=== PATIENT | male | born 1950 | race Caucasian/White ===

== ENCOUNTER 2016-07-05 01:16 | Inpatient (IN) | payer OTHER, MEDICARE ==
[~2016-07-05] VITALS: Ht 170.2 cm; Wt 102.5 kg
[~2016-07-05 01:16] MED LIST: ALLOPURINOL100 M1 PO; ASPIRIN EC325 M2 PO; BUPROPION XL150 MG PO; COLACE100 M1 PO; COZAAR50 M1 PO; DILAUDID2 M1 PO; EFFEXOR XR37.5 M1 PO; HYDROCHLOROTHIA25 M1 PO; MIRALAX17 G1 PO; MOVANTIK25 M1 PO; MS CONTIN30 M1 PO; OMEPRAZOLE40 M1 PO; SYNTHROID150 MCG PO; SYNTHROID75 MCG PO
--- NOTE | 2016-07-05 15:12 | Operative Report ---
Operative/Inv Procedure Report Surgery Date: 07/05/16 Name of Procedure: Left total knee replacement Pre-Operative Diagnosis: Primary left knee DJD Post-Operative Diagnosis: Same Estimated Blood Loss: 50ml to 100ml Surgeon/Laserist: SARAY RIOS,JAVIER Razo Anesthesia: block Operative/Procedure Note Note: Description of Procedure: The patient was taken to the operating room and positively identified. After induction of spinal anesthesia and administration of appropriate pre-operative antibiotics, the patient was positioned supine on the operating room table and all bony prominences were well padded. A well-padded pneumatic tourniquet was placed on the left upper thigh. After performing a surgical timeout, the left lower extremity was prepped and draped in the usual sterile fashion. After exsanguination with Esmarch the tourniquet was inflated to 250mm of mercury. A standard medial parapatellar approach was made to the knee. This was carried down through skin and subcutaneous tissue to the level of the fascia. Meticulous hemostasis was maintained with Bovie electrocautery. The extensor mechanism and patellar retinaculum were opened sharply and the patella was everted. The infrapatellar fat was resected in order to improve exposure. Osteophytes were trimmed from the patella and femoral condyles and the patella was re-everted and tucked laterally. A medial release was performed and the cruciate ligaments were resected. The tibia was then subluxed anteriorly. Utilizing the appropriate extra-medullary guide, the proximal tibia was trimmed perpendicular to the long axis of the tibial shaft. Attention was then turned to the femur. After opening the medullary canal, the distal femoral cut was made in 6 degrees of valgus utilizing the appropriate intra-medullary guide. The extension gap was checked and found to be appropriate. The femur was then sized and the remainder of the femoral cuts were made with a size 5 4-in-1 femoral cutting guide. The flexion gap was checked and found to be symmetric and appropriate. The knee was then trialed with a size 5 femoral component, a size 5 tibial component and a size 13 mm polyethylene insert. The patella was not resurfaced due to its excellent preoperative condition. This yielded excellent range of motion, stability and patellar tracking. All trial components were removed and the knee was copiously irrigated with sterile saline. All components were cemented into place with Pollard Simplex cement. All the components were of the Siva Triathlon knee system of the above stated sizes. The knee was again irrigated after cementation. The extensor mechanism and patellar retinaculum were repaired using interrupted #1 vicryl suture. The skin was re-approximated with 2-0 vicryl and closed with justa. A sterile dressing was applied, the tourniquet was deflated, the patient was awakened and taken to the recovery room in satisfactory condition.
[2016-07-05] MEDS ORDERED: ASPIRIN EC325 M2 PO (15:42)
[2016-07-05] MEDS ORDERED: MS CONTIN15 M2 PO (15:46)
[2016-07-05] MEDS ORDERED: MIRALAX17 G1 PO (15:46)
[2016-07-05] MEDS ORDERED: COLACE100 M1 PO (15:46)
[2016-07-05] MEDS ORDERED: DILAUDID2 M1 PO (15:46)
--- NOTE | 2016-07-05 15:49 | Patient Discharge Instructions ---
Discharge Instructions General Discharge Information You were seen/treated for: Left knee pain secondary to primary unilateral osteoarthritis You had these procedures: Left total knee replacement Watch for these problems: Increasing pain, redness, warmth, swelling. Drainage of any type from incision. Inability to bear weight on left leg. Fever greater than 101.5. Do not soak the wound: Yes No bath, but you may shower: Yes Other wound care: Keep wound clean and dry Special Instructions: Incision: Dry dressing. May shower. No baths. No ointments of any kind. Ice as needed. Bowel regimen: Colace and or MiraLAX Weight-bearing as tolerated Follow-up with Dr. Chandler in 6 weeks. Call office for fevers greater than 101.5, excessive drainage or inability to bear weight on operative extremity. Visiting nurse will change dressing. Diet Continue normal diet: Yes Recommended Diet: Regular Additional DIET Information: Advance as tolerated Activity Full Activity/No Limits: No Activity Self Limited: Yes Pounds, do NOT lift more than: 10 Additional ACTIVITY Info: Weight-bear as tolerated on left leg Acute Coronary Syndrome Inclusion Criteria At DC or during hospital stay patient has or had the following: ACS DIAGNOSIS No Discharge Core Measures Meds if any: Prescribed or Continued at Discharge Meds if any: NOT Prescribed or Continued at Discharge Congestive Heart Failure Inclusion Criteria At DC or during hospital stay patient has or had the following: CHF DIAGNOSIS No Discharge Core Measures Meds if any: Prescribed or Continued at Discharge Meds if any: NOT Prescribed or Continued at Discharge Cerebrovascular accident Inclusion Criteria At DC or during hospital stay patient has or had the following: CVA/TIA Diagnosis No Discharge Core Measures Meds if any: Prescribed or Continued at Discharge Meds if any: NOT Prescribed or Continued at Discharge Venous thromboembolism Inclusion Criteria VTE Diagnosis No VTE Type NONE VTE Confirmed by (Test) NONE Discharge Core Measures - Per Current guidelines, there needs to be overlap - treatment for the first 5 days of Warfarin therapy. - If discharged on Warfarin prior to 5 days of - overlap therapy, the patient will need to be - assessed for post discharge needs including - *Post discharge parental anticoagulation - *Warfarin and/or parental anticoagulation education - *Follow up date to check INR post discharge At least 5 days overlap therapy as Inpatient No Meds if any: Prescribed or Continued at Discharge Note: Overlap Therapy is Warfarin and Anticoagulant Meds if any: NOT Prescribed or Continued at Discharge
--- NOTE | 2016-07-05 15:50 | Surgical Discharge Summary ---
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 Patient/Self What is Your Primary Language? Libyan Review of Systems: See H&P Hospital Course Course Attending Physician: JAVIER SO MD Primary Care Physician: DENIZ RIOS,[place] Hospital Course: Patient was admitted to the hospital on 07/05/2016 for an elective left total knee replacement. He tolerated the procedure well. He was transferred to a general surgical floor. His diet was advanced and tolerated. His vital signs are stable and within normal limits. He voided spontaneously. His pain was well controlled. He was evaluated and treated by physical therapy. He was deemed appropriate for discharge. Allergies: Coded Allergies: esomeprazole (From NEXIUM) (Intermediate, FLU LIKE REACTION 02/26/16) latex (Intermediate, RASH 02/26/16) Gadolinium-Containing Contrast Medi (DISCOMFORT, PAIN AT SITE OF INJ, NAUSEA ) Disposition Summary Disposition Principal Diagnosis: Left knee unilateral primary osteoarthritis Additional Diagnosis: None Discharge Disposition: home health services Discharge Instructions General Discharge Information Code Status: Full Code Patient's Diet: Regular, advance as tolerated Patient's Activity: Weight-bear as tolerated on left leg Follow-Up Instructions/Appts: Incision: Dry dressing. May shower. No baths. No ointments of any kind. Ice as needed. Bowel regimen: Colace and or MiraLAX Weight-bearing as tolerated Follow-up with Dr. So in 6 weeks. Call office for fevers greater than 101.5, excessive drainage or inability to bear weight on operative extremity. Visiting nurse will change dressing. Medications at Discharge Discharge Medications: Continue taking these medications: Allopurinol (Allopurinol) 100 MG TABLET 1 Tablet ORAL DAILY Comments: Last Taken:07/07/16 Time:0930 Hydrochlorothiazide (Hydrochlorothiazide) 25 MG TABLET 1 Tablet ORAL DAILY Comments: Last Taken:07/07/16 Time:0930 Losartan Potassium (Cozaar) 50 MG TABLET 1 Tablet ORAL TWICE DAILY Comments: Last Taken:07/07/16 Time:09 Venlafaxine HCl (Effexor XR) 37.5 MG CAP.ER.24H 1 Capsule ORAL Every other day Comments: Last Taken:07/06/16 Time:0600 Levothyroxine Sodium (Synthroid) 75 MCG TABLET 1 Tablet ORAL DAILY BEFORE BREAKFAST Qty = 90 Comments: Last Taken:07/07/16 Time:0630 Naloxegol Oxalate (Movantik) 25 MG TABLET 1 Tablet ORAL Every Morning as needed for CONSTIPATION Qty = 14 Comments: Last Taken:NOT GIVEN IN HOSPITAL Time: Omeprazole (Omeprazole) 40 MG CAPSULE.DR 1 Tablet ORAL DAILY Comments: Last Taken:07/07/16 Time:0630 Bupropion HCl (Wellbutrin Sr) 150 MG TABLET.ER 1 Tablet ORAL DAILY Comments: Last Taken:07/07/16 Time:09 Aspirin (Ecotrin*) 325 MG TABLET.DR 1 Tablet ORAL TWICE DAILY Qty = 60 Comments: Last Taken:07/07/16 Time:0930 This prescription has been renewed Start taking the following new medications: Hydromorphone HCl (Dilaudid) 2 MG TABLET 1-2 Tablet ORAL EVERY 4-6 HOURS as needed for PAIN Qty = 36 No Refills Comments: Last Taken:07/07/16 Time:0715 Docusate Sodium (Colace) 100 MG CAPSULE 1 Capsule ORAL TWICE DAILY Qty = 14 No Refills Instructions: DISCONTINUE USE IF YOU DEVELOP LOOSE STOOL OR DIARRHEA Comments: Last Taken:07/07/16 Time:0930 Polyethylene Glycol 3350 (Miralax) 17 GRAM POWD.PACK 1 Packet ORAL DAILY Qty = 7 No Refills Instructions: dissolve in water, DISCONTINUE USE IF YOU DEVELOP LOOSE STOOL OR DIARRHEA Comments: Last Taken:07/07/16 Time:0930 Morphine Sulfate (Ms Contin) 30 MG TABLET.ER 1 Tablet ORAL TWICE DAILY Qty = 12 No Refills Comments: Last Taken:NOT GIVEN IN HOSPITAL Time: Ketorolac Tromethamine (Ketorolac Tromethamine) 10 MG TABLET 1 Tablet ORAL EVERY SIX HOURS NEEDED as needed for PAIN SCALE 7-10 ( SEVERE) Qty = 20 No Refills Comments: Last Taken:3/10/17 Time:0630 ( IV GIVEN IN HOSPITAL )
--- NOTE | 2016-07-05 15:52 | Admission Core Measures ---
Admission Meds I reviewed the following Meds: Current Medications Sig/Hussain Start time Last Medication Dose Stop Time Status Admin Acetaminophen 975 MG ONCE 07/05 0000 NR (Tylenol) 07/05 235 Allopurinol 100 MG DAILY 07/06 1000 UNVr (Zyloprim) Cefazolin Sodium 2,000 MG ONCE 07/05 0000 NR (Kefzol-Ancef Inj) 07/05 235 Hydrochlorothiazide 25 MG DAILY 07/06 1000 UNVr (Hydrodiuril) Levothyroxine Sodium 0.075 MG DAILY AC 07/06 0700 UNVr (Synthroid) Losartan Potassium 50 MG BID 07/05 2200 UNVr (Cozaar) Oxycodone HCl 10 MG ONCE 07/05 0000 NR (Roxicodone) 07/05 235 Ropivacaine 500 ML ONCE ONE 07/05 1245 AC (NAROPIN) 07/07 1444 ON-Q Ball 1 BAG Venlafaxine HCl 37.5 MG .[EOD] 07/05 1530 UNVr (Effexor Xr) Acute Coronary Syndrome Inclusion Criteria ACS Diagnosis No Inpatient Core Measures LDL Reminder: If No, please order W/I first 24hr of stay Congestive Heart Failure Inclusion Criteria CHF Diagnosis No Cerebrovascular accident Inclusion Criteria CVA/TIA Diagnosis No Inpatient Core Measures Bedside Swallow Eval Reminder: If BSE failed, place ST order Antithrombotic Reminder: Order Antithrombotic Medication by end of day 2 Antithrombotic Reminder: Document Reason Antithrombotic Not ordered by end of day 2 AFIB/Flutter Reminder: If Present, add to problem list AFIB/Flutter Reminder: Order Anticoag Medication for pts with AFIB/Flutter Atherosclerosis Reminder: If Present, add to problem list LDL Reminder: If No, please order W/I first 24hr of stay PT Order Reminder: If No, please order Venous thromboembolism Inpatient Core Measures VTE Risk Factors: Age > 40, Surgery No [facility] VTE prophylaxis d/t No contraindications No VTE Pharm Prophylaxis d/t No contraindications Inclusion Criteria - Per Current guidelines, there needs to be overlap - treatment for the first 5 days of Warfarin therapy. - Parenteral Anticoagulation (IV or SC) needs to be - given along with Warfarin therapy. VTE Diagnosis No VTE Type NONE VTE Confirmed by (Test) NONE Problem List As ranked by this Provider includes Assessment & Plan 1. Unilateral primary osteoarthritis, left knee HOME MEDS Home Med List Allopurinol 100 MG TABLET 1 TAB PO DAILY GOUT (Reported) Aspirin (Ecotrin*) 325 MG TABLET.DR 1 TAB PO BID BLOOD THINNER Docusate Sodium (Colace) 100 MG CAPSULE 1 CAP PO BID CONSTIPATION Hydrochlorothiazide 25 MG TABLET 1 TAB PO DAILY WATER PILL (Reported) Hydromorphone HCl (Dilaudid) 2 MG TABLET 1-2 TAB PO Q4-6 PRN PAIN Levothyroxine Sodium (Synthroid) 75 MCG TABLET 1 TAB PO DAILY AC THYROID ( Reported) Losartan Potassium (Cozaar) 50 MG TABLET 1 TAB PO BID BP (Reported) Morphine Sulfate (Ms Contin) 15 MG TABLET.ER 1 TAB PO BID PAIN Naloxegol Oxalate (Movantik) 25 MG TABLET 1 TAB PO QAM PRN CONSTIPATION Polyethylene Glycol 3350 (Miralax) 17 GRAM POWD.PACK 1 PAC PO DAILY CONSTIPATION Venlafaxine HCl (Effexor XR) 37.5 MG CAP.ER.24H 1 CAP PO EOD MENTAL HEALTH ( Reported)
[2016-07-05 17:20] VITALS: BP 142/60
--- NOTE | 2016-07-05 17:41 | PN- Orthopedic ---
Subjective Subjective: POST-OP NOTE: No complaints. Asking to eat dinner. No nausea. Not yet out of bed. No dizziness. No shortness of breath. No chest pains. Due to void tonight. Objective Vital Signs and I&Os pacu sheet reviewed (vitals stable) Physical Exam: General - alert & oriented x 3. comfortable. no acute distress. Lungs - clear bilaterally. no w/r/r. Cardiac - s1s2. reg. Abdomen - soft. nontender. Extremities - warm b/l. right leg dressing c/d/i. nvi. calves nontender. Assessment/Plan Assessment/Plan This 65 year old white male is POD#0 s/p left total knee replacement for primary osteoarthritis advance diet as tolerated pain control as ordered PT eval in am asa bid - dvt ppx ancef x 2 doses f/u labs in morning will d/w Core Measures/Miscellaneous Venous Thromboembolism VTE Risk Factors: Age > 40, Surgery VTE Contraindications: No Contraindications VTE Diagnosis: No VTE Type: NONE VTE Confirmed by (Test): NONE Beta Loi Is Beta Loi a Home Med? No Antibiotics Is Patient on Antibiotics? Yes If Yes: prophylaxis
[2016-07-05 20:00] VITALS: BP 118/70
[2016-07-05 23:51] VITALS: BP 124/72
--- NOTE | 2016-07-06 00:14 | NUR ---
AT 2200, PATIENT OOB WITH THIS STRAP STITCHER TO GO TO THE BATHROOM. PATIENT AMBULATED WITH MINIMUM ASSIST X 1 AND RW. VOIDED IN TOILET. DENIES PAIN. WILL CONTINUE TO MONITOR.
[2016-07-06 07:11] VITALS: BP 110/70
[2016-07-06 08:29] LABS: ABSOLUTE BASOPHIL COUNT 0 /CUMM (0.0-0.2); ABSOLUTE EOSINOPHIL COUNT 0 /CUMM (0.0-0.7); ABSOLUTE GRANULOCYTE CT 6.2 /CUMM (1.4-6.5); ABSOLUTE LYMPH COUNT 0.6 /CUMM (1.2-3.4); ABSOLUTE MONOCYTE COUNT 0.6 /CUMM (0.10-0.60); BASOPHIL % 0 % (0.0-2.0); EOSINOPHIL % 0 % (0-5); HEMATOCRIT 34.2 % (42-52); MEAN CORPUSCULAR HGB 29.5 PG (27.0-31.0); MEAN CORPUSCULAR HGB CONC 33.5 G/DL (33.0-37.0); MEAN CORPUSCULAR VOLUME 87.8 FL (80.0-94.0); MEAN PLATELET VOLUME 8.6 FL (7.4-10.4); PLATELET COUNT 143 /CUMM (130-400); RBC DISTRIBUTION WIDTH 15.3 % (11.5-14.5); WHITE BLOOD CELL COUNT 7.4 /CUMM (4.8-10.8)
[2016-07-06] MEDS ORDERED: MS CONTIN15 M2 PO (09:15)
--- NOTE | 2016-07-06 09:20 | PN- Orthopedic ---
Subjective Subjective: OOB in chair Pain tolerable overnight Ambulated with PT yesterday Objective Vital Signs and I&Os Vital Signs Date Time Temp Pulse Resp B/P Pulse O2 O2 Flow FiO2 Ox Delivery Rate 07/06 0711 98.3 73 20 110/70 96 Room Air 07/05 2351 98.2 77 20 124/72 95 Room Air 07/05 2117 79 118/70 07/05 2000 96.7 77 18 118/70 96 Room Air 07/05 1720 97.0 64 18 142/60 96 Room Air Intake & Output 07/06 1600 07/06 0807/06 0000 07/05 1600 07/05 0807/05 0000 Intake Total 500 905 Output Total 2350 Balance -1850 905 Intake, IV 425 Intake, Oral 500 480 Output, Urine 2350 Patient 226 lb Weight Physical Exam: vss, afebrile General: alert and oriented times three Chest:clear anteriorly bilaterally, RRR Abd: soft Ext: warm, no calf tenderness Wound: dressed, dry, ice pack in place On Q in place Physical Exam General Appearance: well developed/nourished ( i) Assessment/Plan Assessment/Plan 65 yo male s/p L TKR pain management PT dc when cleared asa 325mg po bid Core Measures/Miscellaneous Venous Thromboembolism VTE Risk Factors: Age > 40, Surgery VTE Contraindications: No Contraindications VTE Diagnosis: No VTE Type: NONE VTE Confirmed by (Test): NONE Beta Loi Is Beta Loi a Home Med? No Antibiotics Is Patient on Antibiotics? Yes If Yes: prophylaxis
[2016-07-06 09:28] LABS: GRANULOCYTE % 83.1 % (42.2-75.2)
[2016-07-06] MEDS ORDERED: OMEPRAZOLE40 M1 PO (14:15)
[2016-07-06] MEDS ORDERED: WELLBUTRIN SR150 M1 PO (14:16)
[2016-07-06 15:47] VITALS: BP 108/60
[2016-07-06 22:20] VITALS: BP 104/68
[2016-07-07 07:37] VITALS: BP 106/52
[2016-07-07] MEDS ORDERED: KETOROLAC TROME10 M1 PO (09:03)
[2016-07-07] MEDS ORDERED: MS CONTIN30 M1 PO (09:03)
--- NOTE | 2016-07-07 09:12 | PN- Orthopedic ---
Subjective Subjective: pod#2 s/p left tka no major complaints today denies cp, sob, no n+v with diet Objective Vital Signs and I&Os Vital Signs Date Time Temp Pulse Resp B/P Pulse O2 O2 Flow FiO2 Ox Delivery Rate 07/07 0737 98.7 81 20 106/52 98 Room Air / 2220 98.3 85 20 104/68 96 / 1547 97.8 96 20 108/60 97 07/06 0924 94 110/60 Intake & Output 07/07 1600 07/07 0800 07/07 0000 / 1600 07/06 0800 07/06 0000 Intake Total 200 1000 500 905 Output Total 2350 Balance 200 1000 -1850 905 Intake, IV 425 Intake, Oral 200 1000 500 480 Number 1 Bowel Movements Output, Urine 2350 Patient 226 lb Weight Physical Exam: cv: rrr lungs: clear abd: soft, +bs ext: drsg changed, wound c/d/i distal cms intact\ no calf tenderness bilat Assessment/Plan Assessment/Plan ortho stable cleared by pt +bm plan ok for home d/c this am f/u dr nolasco 6 weeks Core Measures/Miscellaneous Venous Thromboembolism VTE Risk Factors: Age > 40, Surgery VTE Contraindications: No Contraindications VTE Diagnosis: No VTE Type: NONE VTE Confirmed by (Test): NONE Beta Loi Is Beta Loi a Home Med? No Antibiotics Is Patient on Antibiotics? Yes If Yes: prophylaxis
[2016-07-07 09:32] VITALS: BP 104/60
== END 2016-07-07 11:00 | disposition home health service (06) | DRG 470 ==
LOC: ENRESERVTM → ENRESERVDT → ENPENDDIS 01:16 → 2NA 01:16 → SDA 01:16 → 2NA 17:25
PROVIDERS: Nurse Practitioner; ADMIT Orthopaedic Surgery
PROC: 0SRD0J9 Replacement of Left Knee Joint with Synthetic Substitute, Cemented, Open Approach (ICD-10-PCS; principal; 2016-07-05)
DX: M17.12 Unilateral primary osteoarthritis, left knee (principal); I10 Essential (primary) hypertension; E03.9 Hypothyroidism, unspecified; K21.9 Gastro-esophageal reflux disease without esophagitis; F41.9 Anxiety disorder, unspecified; M10.9 Gout, unspecified; E66.9 Obesity, unspecified; Z68.35 Body mass index [BMI] 35.0-35.9, adult; G47.33 Obstructive sleep apnea (adult) (pediatric)
CPT/HCPCS: 2NAP; 2NASP; 82436; 88305; 97110-GO; 97116-GO; 97161-GP; 97530-GO; C1713; J0690; J1885; J2405; J2550; J2795; J3490; J7042